=== PATIENT | male | born 1985 | race Two or more races ===

== ENCOUNTER 2020-02-01 17:17 | Inpatient (IN) | payer OTHER ==
[~2020-02-01] VITALS: Ht 195.6 cm; Wt 83.9 kg
--- NOTE | 2020-02-01 17:30 | NUR ---
pt ambulatory to er bed 11 c/o worsening generalized body rash and itching worst to ble x 4 days now. pt denies sob or throat tightness. placed on monitor. awaiting md simpson.
--- NOTE | 2020-02-01 17:54 | NUR ---
dr farris at bedside for eval.
--- NOTE | 2020-02-01 18:11 | NUR ---
iv line started blood drawn and sent to lab.
[2020-02-01 18:17] LABS: BASOPHILS % (AUTO) 0.1 % (0.0-2.0); EOSINOPHILS % (AUTO) 3.6 % (0.0-6.0); HEMATOCRIT 43 % (39-51); HEMOGLOBIN 14.6 g/dL (13.5-17.5); LYMPHOCYTES # (AUTO) 1.7 /CMM (0.8-4.8); LYMPHOCYTES % (AUTO) 19.3 % (20.0-44.0); MEAN CORPUSCULAR HGB CONC 34 g/dl (31.0-36.0); MEAN CORPUSCULAR VOLUME 92 fL (80-96); MONOCYTES # (AUTO) 0.6 /CMM (0.1-1.30); MONOCYTES % (AUTO) 6.9 % (2.0-12.0); NEUTROPHILS # (AUTO) 6.3 /CMM (1.8-8.9); NEUTROPHILS % (AUTO) 70.1 % (43.0-81.0); PLATELET COUNT (AUTO) 298 /CMM (150-450); RED BLOOD CELL COUNT(AUTO) 4.72 MIL/uL (4.5-6.0); WHITE BLOOD COUNT (AUTO) 8.9 K/uL (4.3-11.0)
[2020-02-01 18:27] LABS: POTASSIUM 3.8 mmol/L (3.5-5.1)
[2020-02-01 18:33] LABS: CALCIUM, SERUM 8.5 mg/dL (8.5-10.1)
[2020-02-01] MEDS ORDERED: LEVOFLOXACIN 750 MG /D5W 150ML 150 ML IV ONE (18:36)
[2020-02-01] MEDS ORDERED: diphenhydrAMINE HCL 50 MG/ML VIAL ONE (18:36)
[2020-02-01] MEDS ORDERED: VANCOMYCIN 1 GM in IV D5W 250 ML IV ONE (19:00)
[2020-02-01] MEDS ORDERED: LEVOFLOXACIN 750 MG /D5W 150ML PIGGYBACK IV ONE (19:00)
[2020-02-01] MEDS ORDERED: diphenhydrAMINE HCL 50 MG/ML VIAL IV ONE (19:00)
--- NOTE | 2020-02-01 19:27 | NUR ---
eport to night sift nurse bowers for julius.
[2020-02-01] MEDS ORDERED: HYDROCODONE/APAP 5/325MG 1 EACH TABLET PO PRN (20:00)
[2020-02-01] MEDS ORDERED: ONDANSETRON HCL/PF 4 MG/2 ML VIAL IVP PRN (20:00)
[2020-02-01] MEDS ORDERED: ACETAMINOPHEN 325 MG TABLET PO PRN (20:00)
[2020-02-01] MEDS ORDERED: ZOLPIDEM TARTRATE 5 MG TABLET PO PRN (20:00)
[2020-02-01] MEDS ORDERED: MAG HYDROX/AL HYDROX/SIMETH 30 ML UDC PO PRN (20:00)
[2020-02-01] MEDS ORDERED: Z GUARD REMEDY 2 OZ OINT TP PRN (20:00)
--- NOTE | 2020-02-01 20:13 | NUR ---
REPORT GIVEN TO MAXX RICO DFOR DIXON.
[2020-02-01] MEDS ORDERED: FEE PK DOSING 1 MIN EA MC ONE (20:15)
--- NOTE | 2020-02-01 20:40 | NUR ---
MS RN OPENING NOTES: RECEIVED PT ON ROOM AIR AND IS TOLERATING WELL. NO SOB NOTED. NO S/S OF DISTRESS OTHER THAN ITCHINESS. PT HAS IV ON R AC #20G AND IS BEING INFUSED WITH LEVAQUIN AT THIS TIME. BED KEPT IN LOW, LOCKED POSITION, AND SIDE RAILS X3 UP. INSTRUCTED PT TO USE CALL LIGHT FOR ASSISTANCE. PT A/OX4. WILL CONTINUE TO MONITOR PT.
[2020-02-01 20:55] VITALS: BP 136/79
[2020-02-01] MEDS: IV NS 0.9% 1,000 ML IV PRN (23:04)
[2020-02-02] MEDS: VANCOMYCIN 1 GM in IV D5W 250 ML IV SCH ×3 (03:25→20:22)
--- NOTE | 2020-02-02 06:28 | NUR ---
MS RN CLOSING NOTES: ALL NEEDS WERE ATTENDED AND ANTICIPATED FOR. PT RESTING COMFORTABLY IN BED AT THIS TIME. NO SOB NOTED. NO S/S OF DISTRESS. PT FULLY ALERT. PT ON ROOM AIR AND TOLERATING WELL. PT HAS IV ON R AC AND IS BEING INFUSED WITH IV NS AT 75ML/HR. BED KEPT IN LOW, LOCKED POSITION, AND SIDE RAILS X 2UP. CALL LIGHT WITHIN REACH. WILL ENDORSE TO AM NURSE FOR DIXON.
--- NOTE | 2020-02-02 07:09 | NUR ---
MS RN NOTES: ENDORSED TO ALVARO FOR DIXON.
[2020-02-02 07:27] LABS: BASOPHILS % (AUTO) 0.1 % (0.0-2.0); EOSINOPHILS % (AUTO) 5.2 % (0.0-6.0); HEMATOCRIT 42 % (39-51); LYMPHOCYTES # (AUTO) 1.7 /CMM (0.8-4.8); LYMPHOCYTES % (AUTO) 27.6 % (20.0-44.0); MEAN CORPUSCULAR HGB CONC 33 g/dl (31.0-36.0); MEAN CORPUSCULAR VOLUME 91 fL (80-96); MONOCYTES # (AUTO) 0.7 /CMM (0.1-1.30); MONOCYTES % (AUTO) 11.2 % (2.0-12.0); NEUTROPHILS # (AUTO) 3.5 /CMM (1.8-8.9); NEUTROPHILS % (AUTO) 55.9 % (43.0-81.0); PLATELET COUNT (AUTO) 264 /CMM (150-450); RED BLOOD CELL COUNT(AUTO) 4.62 MIL/uL (4.5-6.0); WHITE BLOOD COUNT (AUTO) 6.3 K/uL (4.3-11.0)
--- NOTE | 2020-02-02 07:37 | NUR ---
MS/RN OPENING NOTE Patient is resting in bed, A/O x4, showing no signs of acute distress or SOB, stable on RA. IV line in the RAC #20g is clean and intact running NS @ 75ml/hour. Patient is ambulatory and independent with their own needs. Bed is in lowest position, side rails x3 in upright position, call light is within reach and patient is aware of how to call for assistance when needed. Isolation precautions noted. Will continue with plan of care.
[2020-02-02 07:39] LABS: CALCIUM, SERUM 8.4 mg/dL (8.5-10.1); CREATININE 0.9 mg/dL (0.6-1.3); PHOSPHORUS 3.6 mg/dL (2.5-4.9); POTASSIUM 3.9 mmol/L (3.5-5.1)
[2020-02-02 08:00] VITALS: BP 132/73
[2020-02-02] MEDS ORDERED: BICT1TAB PO (09:13)
--- NOTE | 2020-02-02 10:00 | NUR ---
MS/RN NOTE Patient unable to provide home med HIV medication. Patient stated he hasn't been able to take any for 1 month due to the offices being closed and he missed his doctors appointment and hasn't scheduled another one.. Pharmacy does not have this medication in stock. MD aware, pharmacy aware. No new orders at this time.
[2020-02-02] MEDS: CALAMINE 118 ML BOTTLE TP SCH ×2 (12:48→22:30)
[2020-02-02] MEDS: HYDROCORTISONE 1% CREAM 28.35 GM TUBE TP SCH ×2 (12:48→16:45)
--- NOTE | 2020-02-02 13:19 | NUR ---
MS/RN NOTE WOUND CULTURE SENT TO LAB.
[2020-02-02] MEDS: IV NS 0.9% 1,000 ML IV PRN (14:24)
[2020-02-02 16:00] VITALS: BP 138/92
[2020-02-02 16:42] VITALS: BP 138/92
--- NOTE | 2020-02-02 17:05 | NUR ---
MS/RN NOTE Received new order for Droplet + contact isolation for possible MRSA and shingles. Isolation cart in place. Also tried contacting the [facility] to obtain records from Dr. Flores, however, the office is closed at this time.
--- NOTE | 2020-02-02 18:50 | NUR ---
MS/RN CLOSING NOTE Patient is resting in bed, A/O x4, showing no signs of acute distress or SOB, stable on RA. IV line in the RAC #20g is clean and intact running NS @ 75ml/hour. All patient needs met, all due medications given. Bed is in lowest position, side rails x2 in upright position, call light is within reach and patient is aware of how to call for assistance when needed. Isolation precautions (droplet + contact enforced for possiblle MRSA and shingles. Will endorse to scene shifter.
[2020-02-02 20:00] VITALS: BP 123/69
--- NOTE | 2020-02-02 20:24 | NUR ---
steward[facility] dining room notes Vancomycin IVP bag will hung by another nurse as ordered and per Vanco trough 9L level. Pharmacy aware .
[2020-02-02] MEDS: ACYCLOVIR IV 1 GM in IV NS 0.9% 250 ML IV SCH (21:42)
[2020-02-03 02:10] LABS: *BASOS 0 % (Not Estab.); *EOS 7 % (Not Estab.); *EOS, ABSOLUTE 0.4 x10E3/uL (0.0-0.4); *HCT 42.6 % (37.5-51.0); *HGB 14.2 g/dL (13.0-17.7); *IMMATURE GRANULOCYTES 0 % (Not Estab.); *LYMPHOCYTES 29 % (Not Estab.); *LYMPHS, ABSOLUTE 1.9 x10E3/uL (0.7-3.1); *MCH 30.7 pg (26.6-33.0); *MCHC 33.3 g/dL (31.5-35.7); *MCV 92 fL (79-97); *MONOCYTES 12 % (Not Estab.); *MONOS, ABSOLUTE 0.8 x10E3/uL (0.1-0.9); *NEUTROPHILS 52 % (Not Estab.); *NEUTROPHILS, ABSOLUTE 3.5 x10E3/uL (1.4-7.0); *PLT 261 x10E3/uL (150-450); *RBC 4.63 x10E6/uL (4.14-5.80); *RDW 13.3 % (11.6-15.4)
[2020-02-03] MEDS: VANCOMYCIN 1 GM in IV D5W 250 ML IV SCH ×3 (04:30→19:51)
[2020-02-03] MEDS: ACYCLOVIR IV 1 GM in IV NS 0.9% 250 ML IV SCH ×3 (06:26→21:13)
--- NOTE | 2020-02-03 06:49 | NUR ---
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 denies any pain or any discomfort. slept well and stable luis the night and all due meds given . respiration even and non-labored . ivf still infusing. kept him warm and comfortable at all times. place call light at reach. will endorse to am nurse for continuity of care.
[2020-02-03 06:59] LABS: CALCIUM, SERUM 8.1 mg/dL (8.5-10.1); CREATININE 0.9 mg/dL (0.6-1.3); POTASSIUM 3.8 mmol/L (3.5-5.1)
[2020-02-03 08:00] VITALS: BP 106/77
[2020-02-03 09:07] LABS: *% CD 4 POS. LYMPH 43.6 % (30.8-58.5); *% CD 8 POS. LYMPH 37.9 % (12.0-35.5); *ABSOLUTE CD 4 HELPER 828 /uL (359-1519); *ABSOLUTE CD 8 SUPPRESSOR 720 /uL (109-897); *CD4/CD8 RATIO 1.15 (0.92-3.72)
[2020-02-03] MEDS: HYDROCORTISONE 1% CREAM 28.35 GM TUBE TP SCH ×2 (09:12→16:30)
[2020-02-03] MEDS: CALAMINE 118 ML BOTTLE TP SCH ×2 (09:12→21:16)
--- NOTE | 2020-02-03 10:16 | NUR ---
WOUND CARE CONSULT: PT PRESENTS WITH REDNESS/RASH ON PENIS AND REDNESS TO LEFT ARM AND BILATERAL LEGS, PRESENT ON ADMISSION. RECOMMENDATIONS MADE FOR SKIN PROTECTION. DISCUSSED WITH NURSING STAFF. PT IS INDEPENDENT WITH BED MOBILITY AND CONTINENT. WILL SEE PRN. CERRATO IN AGREEMENT WITH PLAN OF CARE.
[2020-02-03] MEDS: IV NS 0.9% 1,000 ML IV PRN (10:57)
[2020-02-03 16:00] VITALS: BP 135/92
[2020-02-03] MEDS: CLOTRIMAZOLE 1% 15 GM TUBE TP SCH (16:30)
--- NOTE | 2020-02-03 19:35 | NUR ---
M/S RN NOTES PATIENT AWAKE IN BED, NO RESPIRATORY DISTRESS, NO C/O PAIN AT THIS TIME. SKIN WARM TO TOUCH, IV ACCESS SITE INTACT AND PATENT. ISOLATION PRECAUTIONS MAINTAINED. PATIENT'S NEEDS ATTENDED, BED ON LOWEST LOCKED POSITION, CALL LIGHT WITHIN REACH. WILL ENDORSE TO ONCOMING NURSE.
--- NOTE | 2020-02-03 19:36 | NUR ---
MS RN OPENING NOTES PATIENT RECEIVED RESTING IM BED A/O X 4. STABLE ON RA WITH BREATHING EVEN AND UNLABORED, NO SOB NOTED. NO SIGNS OF ACUTE DISTRESS. NO COMPLAINTS OF PAIN OR DISCOMFORT AT THE MOMENT. IV LOCATED ON R HAND 322 RUNNING NS @ 75 ML/HR. SAFETY PRECAUTIONS IN PLACE WITH BED IN LOWEST POSITION, CALL LIGHT WITHIN REACH, BREAKS ON,AND SIDE RAILS UP. WILL CONTINUE TO MONITOR THROUGHOUT THE NIGHT.
[2020-02-03 20:00] VITALS: BP 140/78
[2020-02-04] MEDS: VANCOMYCIN 1 GM in IV D5W 250 ML IV SCH ×3 (03:05→20:27)
[2020-02-04] MEDS: ACYCLOVIR IV 1 GM in IV NS 0.9% 250 ML IV SCH ×3 (04:46→21:44)
[2020-02-04 06:27] LABS: CALCIUM, SERUM 8.6 mg/dL (8.5-10.1); CREATININE 0.8 mg/dL (0.6-1.3); POTASSIUM 3.8 mmol/L (3.5-5.1)
--- NOTE | 2020-02-04 06:40 | NUR ---
MS RN CLOSING NOTES PATIENT RESTING IN BED A/O X 4. STABLE ON RA WITH BREATHING EVEN AND UNLABORED, NO SOB NOTED. NO SIGNS OF ACUTE DISTRESS. NO COMPLAINTS OF PAIN OR DISCOMFORT AT THE MOMENT. IV LOCATED ON R HAND #22 RUNNING NS @ 75 ML/HR. SAFETY PRECAUTIONS IN PLACE WITH BED IN LOWEST POSITION, CALL LIGHT WITHIN REACH, BREAKS ON,AND SIDE RAILS UP. ALL NEEDS ATTENDED TO. WILL ENDORSE TO ONCOMING SHIFT ABOUT DIXON.
[2020-02-04 08:00] VITALS: BP 125/72
--- NOTE | 2020-02-04 08:00 | NUR ---
RN OPENING NOTES RECEIVED PT RESTING IN BED ALERT AND ORIENTED X 4. PT IS PLEASANT AND CALM. NO CARDIAC OR RESP DISTRESS NOTED. STABLE ON RA WITH BREATHING EVEN AND UNLABORED, NO SOB NOTED. COMPLAINED OF DISCOMFORT ON BLE. IV ACCESS NOTED ON R HAND G22 WITH NS @ 75 ML/HR. SAFETY PRECAUTIONS IN PLACE WITH BED LOCKED AND IN LOWEST POSITION, CALL LIGHT WITHIN REACH, SIDE RAILS UP. WILL CONTINUE TO MONITOR
[2020-02-04] MEDS: HYDROCORTISONE 1% CREAM 28.35 GM TUBE TP SCH ×2 (08:26→16:47)
[2020-02-04] MEDS: CLOTRIMAZOLE 1% 15 GM TUBE TP SCH ×2 (08:26→16:47)
[2020-02-04] MEDS: CALAMINE 118 ML BOTTLE TP SCH ×2 (08:26→21:49)
[2020-02-04] MEDS: IV NS 0.9% 1,000 ML IV PRN (10:22)
--- NOTE | 2020-02-04 15:00 | NUR ---
REINSERTED IV IV SITE ON R HAND INFILTRATED. RE-INSERTED NEW IV SITE ON R FOREARM G20. INTACT PATENT FLUSHING WELL.
[2020-02-04 16:00] VITALS: BP 132/92
--- NOTE | 2020-02-04 18:40 | NUR ---
MS RN CLOSING NOTE PT RESTING IN BED ALERT AND ORIENTED X 4. PT IS PLEASANT AND CALM. NO CARDIAC OR RESP DISTRESS NOTED. STABLE ON RA WITH BREATHING EVEN AND UNLABORED, NO SOB NOTED. COMPLAINED OF DISCOMFORT ON BLE. IV ACCESS NOTED ON R FOREARM G 20 WITH NS @ 75 ML/HR. SAFETY PRECAUTIONS IN PLACE WITH BED LOCKED AND IN LOWEST POSITION, CALL LIGHT WITHIN REACH, SIDE RAILS UP. ATTTENDED ALL PTS NEEDS DURING SHIFT
--- NOTE | 2020-02-04 19:30 | NUR ---
MS RN OPENING NOTE RECEIVED PATIENT IN BED. A/OX3. TOLERATING ROOM AIR. RESPIRATIONS ARE EVEN AND UNLABORED. NO S/S SOB NOTED. DENIES PAIN AT THIS TIME . IN NO APPARENT DISTRESS. IV ACCESS IN RFA#20 RUNNING NS@75ML/HR. BED IS LOW AND LOCKED, HOB ELEVATED IN HIGH FOWLERS, SIDE RIALS UP X2. CALL LIGHT WITHIN REACH. WILL CONTINUE TO MONITOR.
[2020-02-04 20:00] VITALS: BP 137/78
[2020-02-05] MEDS: VANCOMYCIN 1 GM in IV D5W 250 ML IV SCH ×2 (04:20→12:42)
[2020-02-05] MEDS: ACYCLOVIR IV 1 GM in IV NS 0.9% 250 ML IV SCH ×2 (05:36→14:47)
--- NOTE | 2020-02-05 06:41 | NUR ---
MS RN CLOSING NOTE PATIENT IN BED. A/OX3. TOLERATING ROOM AIR. RESPIRATIONS ARE EVEN AND UNLABORED. NO SOB NOTED. NO C/O PAIN .NO DISTRESS NOTED. IV ACCESS MAINTAINED IN RFA#20 RUNNING NS@75ML/HR. BED IS LOW AND LOCKED, HOB ELEVATED IN HIGH FOWLERS, SIDE RIALS UP X2. CALL LIGHT WITHIN REACH. WILL ENDORSE TPO NEXT SHIFT
[2020-02-05 06:52] LABS: CALCIUM, SERUM 8.7 mg/dL (8.5-10.1); CREATININE 0.9 mg/dL (0.6-1.3); POTASSIUM 3.7 mmol/L (3.5-5.1)
[2020-02-05] MEDS ORDERED: ACYC800T PO (07:49)
[2020-02-05] MEDS ORDERED: SULF1TAB48 PO (07:49)
[2020-02-05 08:00] VITALS: BP 121/71
--- NOTE | 2020-02-05 08:00 | NUR ---
MS RN OPENING NOTES PATIENT IN BED. A/OX3. TOLERATING ROOM AIR. RESPIRATIONS ARE EVEN AND UNLABORED. NO SOB NOTED. NO C/O PAIN .NO DISTRESS NOTED. IV ACCESS MAINTAINED IN RFA#20 RUNNING NS@75ML/HR. BED IS LOW AND LOCKED, HOB ELEVATED IN HIGH FOWLERS, SIDE RAILS UP X2. SEEN BY DR CAMARENA WITH ORDERS TO DC HOME AND JUST CONTINUE HIS ORAL ATB UPON DC.PRESCRIPTION HAS BEEN ELECTRONICALLY ORDERED TO PT'S PREFERRED PHARMACY. CALL LIGHT WITHIN REACH.
[2020-02-05] MEDS: HYDROCORTISONE 1% CREAM 28.35 GM TUBE TP SCH (08:38)
[2020-02-05] MEDS: CALAMINE 118 ML BOTTLE TP SCH (08:38)
[2020-02-05] MEDS: CLOTRIMAZOLE 1% 15 GM TUBE TP SCH (08:39)
[2020-02-05 16:00] VITALS: BP 131/71
--- NOTE | 2020-02-05 16:08 | NUR ---
called lab and follow up made on the ffg order: Instructions <Please ask micro lab to repor the sensitivities of this organism to doxy, , , RUN DATE: 02/04/20 [facility], PAGE 1, RUN TIME: [phone] [facility] [address]___, Clinical Laboratory , Sonja Marroquin MD, Clinical Laboratory Medical, Director, Cathernie CERRATO, Respiratory Building Superintendent, , , Specimen Inquiry, , , , PATIENT: ROBERT CARDENAS ACCT: [id number] LOC: MED, U: [id number], AGE/SX: 34/M ROOM: 319, RE02/01/20, REG DR: VINICIUS WICK DNP : 1985 BED: 1, DIS:, STATUS: ADM IN TLOC:, , , , , SPEC #: [id number] YAZAN: 02/02/20-1300 STATUS: COMP, REQ #: [id number], RECD: 02/02/[address]:DELANO CHERYL R DNP, SOURCE: LEG ENTR: 02/01/20 [facility] DR: ADILENE DODGE, , [facility]: RIGHT NON STAFF, , CONNOR KWAN M MD, ORDERED: WOUND CULT W/GS, , COMMENTS: LG;02/02/20 1624. PLATED., , , Procedure Result, Verified, , , GRAM STAIN Final, 02/03/20-829, GRAM STAIN NO WBCS SEEN, RARE (1+) GRAM POSITIVE COCCI IN, CLUSTERS, , WOUND CULTURE Final, 02/04/20-752, Organism 1 STAPH AUREUS - MRSA, MODERATE GROWTH, , TEST PERFORMED BY:, [facility]CROBIOLOGY [facility], [address] [place] [address], , ARTISTS' BOOKING REPRESENTATIVE: DR.LINCOLN CANDE LOPEZ, , , , 1. STAPH AUREUS - MRSA, M.I.C. RX, --------- ---, ERYTHROMYCIN >4 R, VANCOMYCIN 1 S, OXACILLIN >2 R, RIFAMPIN <=1 S, TRIMETH/SULFA <=0.5/9.5 S, CLINDAMYCIN >4 R, , WOUND CULTURE Preliminary (changed), 02/03/20-829, CHECKING FOR ADDITIONAL ORGANISMS, , Organism 1 STAPHYLOCOCCUS AUREUS, MODERATE GROWTH, SENSITIVITIES TO FOLLOW, , , , , , CONTINUED ON NEXT PAGE , , , RUN DATE: 02/04/20 [facility], PAGE 2, RUN TIME: [phone] [facility],[place] [address]___, Clinical Laboratory , Sonja Marroquin MD, Clinical Laboratory Medical, Director, Catherine CERRATO, Respiratory Building Superintendent, , , Specimen Inquiry, , , , SPEC: [id number] PATIENT: ROBERT CARDENAS, [id number] (Continued), , , , , , Procedure Result, Verified, , , WOUND CULTURE Preliminary (changed) (continued), 02/03/20-829, TEST PERFORMED BY:, [facility]CRO[facility], [address] [place] [id number], , ARTISTS' BOOKING REPRESENTATIVE: DR.LINCOLN CANDE OLPEZ, , , , , , , , , , , , , , , , , , , , ,
--- NOTE | 2020-02-05 16:10 | NUR ---
FOLLOW UP CALL DONE ON [facility] MICROBIOLOG[facility] AND SPOKE TO MARGIE WHO STATED TO CALL CHRISTIANNE FOR THE SENSITIVITIES .
--- NOTE | 2020-02-05 16:43 | NUR ---
CALLED [facility]CRO[facility] AND SPOKE TO RENAE WHO STATED THAT THE MICROORGANISMS ARE SENSITIVE TO MINOCYCLINE WHICH IS A FAMILY OF DOXYCYCLINE WELL.
--- NOTE | 2020-02-05 18:29 | NUR ---
DISCHARGE PT HOME WITH STABLE V/S.IV H/L REMOVED TO RFA WITH NO BLEEDING NOTED OR SWELLING NOTED.INSTRUCTED TO F/U WITH PMD AND HIV MD.DENIES ANY PAIN OR DISTRESS.
== END 2020-02-05 18:30 | disposition home or self-care (01) | DRG 383 ==
LOC: ER 17:24 → MED 20:04
PROVIDERS: ADMIT Nurse Practitioner Acute Care; ATTEND Family Medicine
DX: L03.115 Cellulitis of right lower limb (principal); B95.62 Methicillin resistant Staphylococcus aureus infection as the cause of diseases classified elsewhere; L02.415 Cutaneous abscess of right lower limb; F19.10 Other psychoactive substance abuse, uncomplicated; Z88.0 Allergy status to penicillin; Z71.6 Tobacco abuse counseling; F32.9 Major depressive disorder, single episode, unspecified; Z86.19 Personal history of other infectious and parasitic diseases; F17.200 Nicotine dependence, unspecified, uncomplicated; A53.9 Syphilis, unspecified
CPT/HCPCS: 36415; 71045-TC; 80048-TC; 80061-TC; 80202-TC; 83735-TC; 84100-TC; 85025-TC; 86360; 87040-TC; 87070-TC; 87081-TC; 87806; A4216; G0378; J0133; J1200; J1956; J3370; J7030; J7050; J7060